=== PATIENT | female | born 1985 | race Caucasian/White ===

== ENCOUNTER 2017-08-09 22:00 | Inpatient (IN) | payer BC ==
[2017-08-09] MEDS ORDERED: CITRIC ACID/SODIUM CITRATE SOL PO ONE (22:25)
[2017-08-09] MEDS ORDERED: SODIUM CHLORIDE 0.9% 50 ML 25 ML IV PRN (22:25)
[2017-08-09] MEDS ORDERED: MORPHINE SULFATE 0.5 MG/ML SOL ONE (22:36)
[2017-08-09] MEDS ORDERED: ONDANSETRON HCL 4 MG/2 ML SOL ONE (22:36)
[2017-08-09] MEDS ORDERED: PHENYLEPHRINE HYDROCHLORIDE 10 MG/ML SOL ONE (22:36)
[2017-08-09] MEDS ORDERED: METOCLOPRAMIDE HYDROCHLORIDE 5 MG/ML SOL ONE (22:37)
[2017-08-09] MEDS ORDERED: CLINDAMYCIN 150 MG/ML SOL ONE (22:39)
[2017-08-09 22:41] LABS: BASOPHILS % (AUTO) 1 % (0-3); EOSINOPHILS % (AUTO) 1 % (0-9); HEMATOCRIT 34 % (35-47); MEAN CORPUSCULAR HGB CONC 34.7 gm/dl (32.0-36.0); MEAN CORPUSCULAR VOLUME 83 fL (81-99); MONOCYTES % (AUTO) 9.9 % (0-12); NEUTROPHILS % (AUTO) 72.9 % (37-80)
[2017-08-09] MEDS ORDERED: OXYTOCIN 10000 MU/ML SOL ONE (22:59)
[2017-08-09] MEDS ORDERED: LACTATED RINGERS 1,000 ML with OXYTOCIN 10000 MU/ML 20 MU IV ONE (23:28)
[2017-08-10] MEDS ORDERED: KETOROLAC TROMETHAMINE 30 MG/ML SOL ONE (00:26)
[2017-08-10] MEDS ORDERED: ONDANSETRON HCL 4 MG/2 ML SOL IV PRN (00:32)
[2017-08-10] MEDS ORDERED: KETOROLAC TROMETHAMINE 30 MG/ML SOL IV PRN (00:32)
[2017-08-10] MEDS ORDERED: APAP/HYDROCODONE 325/5 TAB PO PRN (00:32)
[2017-08-10] MEDS ORDERED: FLEET ENEMA PR PRN (00:32)
[2017-08-10] MEDS ORDERED: BISACODYL 10 MG SUP PR PRN (00:32)
[2017-08-10] MEDS ORDERED: TEMAZEPAM 15MG 15 MG CAP PO PRN (00:32)
[2017-08-10] MEDS ORDERED: DIPHENHYDRAMINE 25 MG CAP PO PRN (00:32)
[2017-08-10] MEDS ORDERED: WITCH HAZEL 1 EA PAD TOP PRN (00:32)
[2017-08-10] MEDS ORDERED: BENZOCAINE/MENTHOL 1 SPR TOP PRN (00:32)
[2017-08-10] MEDS ORDERED: METHYLERGONOVINE MALEATE 0.2 MG TAB PO PRN (00:32)
[2017-08-10 00:42] LABS: ABO O; RH TYPE Negative
[2017-08-10 00:44] LABS: ANTIBODY SCREEN Positive
[2017-08-10 00:46] LABS: UNIT TYPE O NEGATIVE
[2017-08-10] MEDS: LACTATED RINGERS 1,000 ML IV SCH ×4 (03:43→12:10)
[2017-08-10] MEDS: CLINDAMYCIN 150 MG/ML 600 MG in SODIUM CHLORIDE 0.9% 100 ML 100 ML IV SCH ×2 (03:43→05:53)
[2017-08-10] MEDS ORDERED: ACETAMINOPHEN 325 MG ONE (04:11)
[2017-08-10] MEDS: ACETAMINOPHEN 325 MG PO PRN ×4 (04:13→20:13)
[2017-08-10] MEDS: IBUPROFEN 600 MG TAB PO PRN ×3 (08:27→21:55)
[2017-08-10] MEDS: DOCUSATE SODIUM 100 MG SGL PO SCH ×2 (08:27→21:55)
[2017-08-10 18:48] LABS: APPEARANCE,URINE Clear; BILIRUBIN,URINE NEGATIVE (NEGATIVE); COLOR,URINE Yellow; GLUCOSE, URINE (UA) NEGATIVE (NEGATIVE); KETONES,URINE TRACE (NEGATIVE); LEUKOCYTE ESTERASE ,URINE NEGATIVE (NEGATIVE); NITRATE,URINE NEGATIVE (NEGATIVE); OCCULT BLOOD,URINE NEGATIVE (NEG-TRACE); UROBILINOGEN,URINE 0.2 (0.2-1.0 EU)
[2017-08-10 18:53] LABS: RBC,URINE NEG (0-3AV/HPF); WBC,URINE 0-2 (0-5AV/HPF)
[2017-08-10 19:23] LABS: ABO O
[2017-08-10 19:25] LABS: RH TYPE Negative
[2017-08-11] MEDS: ACETAMINOPHEN 325 MG PO PRN ×4 (01:34→21:01)
[2017-08-11] MEDS: IBUPROFEN 600 MG TAB PO PRN ×3 (06:34→22:22)
[2017-08-11] MEDS: DOCUSATE SODIUM 100 MG SGL PO SCH ×2 (09:26→21:00)
[2017-08-11] MEDS ORDERED: FERROUS GLUCONATE 324 MG TABLET ONE (12:40)
[2017-08-11] MEDS: FERROUS GLUCONATE 324 MG TAB PO SCH (12:45)
[2017-08-11] MEDS ORDERED: ACETAMINOPHEN 325 MG ONE ×2 (15:06→19:32)
[2017-08-11] MEDS ORDERED: DOCUSATE SODIUM 100 MG SGL ONE (19:32)
[2017-08-11 21:51] VITALS: O2SAT 97
[2017-08-12] MEDS ORDERED: ACETAMINOPHEN 325 MG ONE ×2 (03:47→09:07)
[2017-08-12] MEDS: ACETAMINOPHEN 325 MG PO PRN ×2 (03:49→09:30)
[2017-08-12 06:44] VITALS: BP 105/68; PULSE 80; RESP 14; TEMP 98
[2017-08-12] MEDS: IBUPROFEN 600 MG TAB PO PRN ×2 (06:44→12:33)
[2017-08-12 07:26] LABS: BASOPHILS % (AUTO) 1 % (0-3); EOSINOPHILS % (AUTO) 3 % (0-9); HEMATOCRIT 27 % (35-47); MEAN CORPUSCULAR HGB CONC 33.8 gm/dl (32.0-36.0); MEAN CORPUSCULAR VOLUME 84 fL (81-99); MONOCYTES % (AUTO) 5.9 % (0-12); NEUTROPHILS % (AUTO) 76.2 % (37-80)
[2017-08-12] MEDS ORDERED: FERROUS GLUCONATE 324 MG TABLET ONE (09:07)
[2017-08-12] MEDS: DOCUSATE SODIUM 100 MG SGL PO SCH (09:30)
[2017-08-12] MEDS: FERROUS GLUCONATE 324 MG TAB PO SCH (09:30)
== END 2017-08-12 13:35 | disposition home or self-care (01) | DRG 540 ==
LOC: OB 22:00 → OBSVTOIN 22:00
PROVIDERS: ADMIT Family Medicine; ATTEND Family Medicine
PROC: 10D00Z1 Extraction of Products of Conception, Low, Open Approach (ICD-10-PCS; principal; 2017-08-09 22:55)
PROC: 3E0234Z Introduction of Serum, Toxoid and Vaccine into Muscle, Percutaneous Approach (ICD-10-PCS; 2017-08-10)
DX: O75.82 Onset (spontaneous) of labor after 37 completed weeks of gestation but before 39 completed weeks gestation, with delivery by (planned) cesarean section (principal); O90.81 Anemia of the puerperium; O34.219 Maternal care for unspecified type scar from previous cesarean delivery; O36.0930 Maternal care for other rhesus isoimmunization, third trimester, not applicable or unspecified; Z3A.38 38 weeks gestation of pregnancy; Z37.0 Single live birth
CPT/HCPCS: 59025; 81001; 85018; 85025; 86850; 86900; 86901; 86922; 99070; J1885; J2274; J2405; J2590; J2765; J3490